=== PATIENT | female | born 2005 | race Caucasian/White ===

== ENCOUNTER 2025-05-12 10:50 | Emergency (ER) | payer BC, SELFPAY ==
--- NOTE | 2025-05-12 10:52 | XRR_ITS ---
PROCEDURE INFORMATION: Exam: XR Chest Exam date and time: 05/12/2025 11:31 AM Age: 19 years old Clinical indication: Pain; Chest pressure; Additional info: Cp TECHNIQUE: Imaging protocol: Radiologic exam of the chest. Views: 1 view. COMPARISON: No relevant prior studies available. FINDINGS: Tubes, catheters and devices: Overlying monitor leads noted. Lungs: Unremarkable. No infiltrate/edema or consolidation. Pleural spaces: Unremarkable. No pleural effusion. No pneumothorax. Heart/Mediastinum: Unremarkable. No cardiomegaly. Bones/joints: Visualized osseous structures show no acute abnormality. XR/XR chest 1V portable [id number] IMPRESSION: No acute cardiopulmonary abnormality.
[2025-05-12 10:54] VITALS: BP 140/98; PULSE 122; RESP 18; TEMP 36.8; O2SAT 97; BMI 32.6
--- NOTE | 2025-05-12 10:54 | ECG_ITS ---
[facility]12 Pat Name: Kiersten Evans Department: Room: Gender: Female Mill [employer]ender: : 2005 Requested By: Laura Peter Order Number: [id number] Snyder MD: Jere Sullivan M.D. Measurements Intervals [place] Rate: 108 P: 51 MT: 163 QRS: 45 QRSD: 80 T: 45 QT: 304 QTc: 409 Interpretive Statements SINUS TACHYCARDIA ABNORMAL RHYTHM ECG No previous ECG available for comparison Electronically Signed On 05-12-2025 20:15:03 CDT by Jere Sullivan M.D. [email or web address]
--- NOTE | 2025-05-12 11:01 | CTR_ITS ---
PROCEDURE INFORMATION: Exam: CT Abdomen And Pelvis With Contrast Exam date and time: 05/12/2025 12:34 PM Age: 19 years old Clinical indication: Abdominal pain; Additional info: Abd pain TECHNIQUE: Imaging protocol: Computed tomography of the abdomen and pelvis with contrast. Radiation optimization: All CT scans at this facility use at least one of these dose optimization techniques: automated exposure control; mA and/or kV adjustment per patient size (includes targeted exams where dose is matched to clinical indication); or iterative reconstruction. Contrast material: OMNI 350; Contrast volume: 100 ml; Contrast route: INTRAVENOUS (IV); COMPARISON: CR (CHEST, ) 05/12/2025 11:31 AM RADIATION DOSE METRICS: Total DLP (mGy-cm): 860.78 FINDINGS: Lungs: Visualized lung bases appear clear. Liver: Normal. No mass. Gallbladder and biliary ducts: Normal. No calcified stones. No ductal dilation. Pancreas: Normal. No ductal dilation. Spleen: Normal. No splenomegaly. Adrenal glands: Normal. No mass. Kidneys and ureters: Well rounded 10 mm hypodense focus is seen upper pole cortex of the right kidney of predominant fluid density with Hounsfield measurements, suggesting small renal cortical cyst. Kidneys appear unremarkable otherwise. No urinary tract stone or obstructive uropathy or perinephric stranding is seen. Stomach and bowel: Unremarkable. No obstruction. No mucosal thickening. Moderate stool volume throughout the colon. Appendix: The appendix is visualized (coronal series 5 images 32 through 34 and axial series 3 images 66 through 69) and appears unremarkable. Intraperitoneal space: No free fluid or ascites. No free air. Vasculature: Unremarkable. No abdominal aortic aneurysm. Lymph nodes: Unremarkable. No enlarged lymph nodes. Urinary bladder: Urinary bladder appears well distended and otherwise unremarkable. Reproductive: Uterus is unremarkable in appearance. Rounded hypodense fluid density cyst is seen involving the left ovary within the left adnexal region measuring 2.7 x 2.2 cm on axial exam and 2.8 x 2.3 cm on coronal exam and 3 x 2.3 cm on sagittal exam. Small follicles noted both ovaries otherwise. Bones/joints: Bone windows show no acute osseous abnormality. Soft tissues: Unremarkable. CT/CT abdomen pelvis w con* [id number] IMPRESSION: 1. 2.5-3 cm left ovarian cyst. 2. Small 10 mm right renal cortical cyst. 3. Moderate stool throughout the colon and correlate clinically for constipation. 4. No acute findings otherwise. COMMENTS: Consistent with the [employer]'s Incidental Findings Committee white paper (J Am David Radiol 2018): Any incidental renal lesion less than 1 cm or classified as too small to characterize, or any incidental cystic renal lesion characterized as simple-appearing, is likely benign. No follow-up imaging is recommended for these lesions per consensus recommendations based on imaging criteria.
--- NOTE | 2025-05-12 11:02 | ED_ITS ---
HPI - Abdominal Pain 2 General: Chief Complaint: Abdominal Pain Stated Complaint: chest/abd pain Time Seen by Provider: 05/12/25 10:52 Source: patient Mode of arrival: ambulatory Limitations: no limitations History of Present Illness: 19-year-old female states she been havin g abdominal pain has been going on for weeks. States the pain is diffuse in nature rates an 8 out of 10 and is sharp and cramping. She denies any vomiting she denies any diarrhea denies any fevers she denies any worse improving factors. Associated Symptoms: Reports nausea; Denies chills, diarrhea, dysuria, fever(s) and vomiting Related Data Home Medications ?Medication ?Instructions ?Recorded ?Confirmed calcium carbonate (Tums) 600 mg PO BID PRN Stomach Up set 05/12/25 05/12/25 ibuprofen 200 mg tablet (Advil) 200 mg PO Q6H PRN Feve r Or Pain 05/12/25 05/12/25 metformin 500 mg tablet 500 mg PO BID 05/12/2505/12 simethicone 80 mg chewable tablet 160 mg PO DAILY PRN 05/12/25 05/12/25 (Gas Relief (simethicone)) Gastrointestinal Spasms Or Cramping Previous Rx's ?Medication ?Instructions ?Recorded dicyclomine 20 mg tablet 20 mg PO TID PRN abdominal p ain 05/12/25 #20 tabs ondansetron 4 mg disintegrating 4 mg PO Q6H PRN nausea and 05/12/25 tablet vomiting #14 tabs Allergies Allergy/AdvReac Type Severity Reaction Status Date / Time No Known Allergies Allergy Verified 05/12/25 10:57 Review of Systems 2 Const: Denies: fever(s), chills, body aches or change in appetite ENMT: Denies: throat pain or dental pain Card: Reports: chest pain Resp: Denies: dyspnea GI: Reports: abdominal pain and nausea; Denies: vomiting or diarrhea : Denies: dysuria Musc: Denies: neck pain or back pain Skin/Breast: Denies: rash Neuro: Denies: headache(s) Physical Exam 2 Const: COMMON NORMALS: no acute distress, patient oriented x3 and healthy appearing HENMT: COMMON NORMALS: normocephalic and atraumatic HEAD & SCALP: n ormocephalic and atraumatic Neck/C-Spine: COMMON NORMALS: full ROM and supple Chest: COMMONS NORMALS: normal inspection of the chest Resp: COMMON NORMALS: normal respiratory effort, No retractions, No use of accessory muscles and clear to auscultation bilaterally AUSCULTATION: clear to auscultation bilaterally Cardio: COMMON NORMALS: regular rhythm and No murmurs present (Cardio) R ATE: tachycardic RHYTHM: regular rhythm GI: COMMON NORMALS: Normal to inspection, nondistended, normoactive bowel sounds present, Soft to palpation, non-tender and no masses PALPATION: Yes Soft to palpation Extremity: COMMON NORMALS: normal to inspection and full ROM Neuro: COMMON NORMALS: patient oriented x3, moves all extremities and no focal motor deficits Psych: COMMON NORMALS: mental status grossly normal, Normal thought process present and cooperative THOUGHT PROCESS: Normal thought process present Skin: COMMON NORMALS: no rashes or lesions noted and no wounds GENERAL SKIN EXAM: no rashes or lesions noted Course 2 Vital Signs: Vital signs: Vital Signs Temperature 98.3 F 05/12/25 10:54 Pulse Rate 100 05/12/25 13:30 Respiratory Rate 18 05/12/25 13:30 Blood Pressure 91/63 05/12/25 13:30 Pulse Oximetry 98 05/12/25 13:30 Oxygen Delivery Me thod Room Air 05/12/25 13:30 MDM - Abdominal Pain Medical Decision Making Patient presents here with abdominal pain CT showed no acute findings she feels much improved here. Blood works normal she is stable for discharge we will place her on Bentyl along with Zofran return if worsening she understands agrees to plan Medical Records I reviewed the patient's medical records. Lab Data I reviewed the patient's lab results. 05/12/25 11:45 05/12/25 11:45 Labs/Radiology: Radiology Impressions Chest X-Ray 05/12/25 10:52 IMPRESSION: No acute cardiopulmonary abnormality. Abdomen/Pelvis CT 05/12/25 11:01 IMPRESSION: 1. 2.5-3 cm left ovarian cyst. 2. Small 10 mm right renal cortical cyst. 3. Moderate stool throughout the colon and correlate clinically for constipation. 4. No acute findings otherwise. COMMENTS: Consistent with the [employer]'s Incidental Findings Committee white paper (J Am David Radiol 2018): Any incidental renal lesion less than 1 cm or classified as too small to characterize, or any incidental cystic renal lesion characterized as simple-appearing, is likely benign. No follow-up imaging is recommended for these lesions per consensus recommendations based on imaging criteria. Laboratory Results WBC 12.13 10^3/uL (3.29-11.43) H 05/12/25 11:45 RBC 4.94 10^6/uL (3.85-5.65) 05/12/25 11:45 Hgb 14.30 g/dL (11.27-16.99) 05/12/25 11:45 Hct 43.6 % (36-47) 05/12/25 11:45 MCV 88.3 fl (85-98) 05/12/25 11:45 MCH 28.9 pg (27-33) 05/12/25 11:45 MCHC 32.8 g/dL (30-55) 05/12/25 11:45 RDW 12.1 % (12.1-15.1) 05/12/25 11:45 Plt Count 256 10^3/cmm (157-399) 05/12/25 11:45 MPV 11.3 fL (7.4-10.4) H 05/12/25 11:45 Neut % (Auto) 67.9 % 05/12/25 11:45 Lymph % (Auto) 19.8 % 05/12/25 11:45 [place] % (Auto) 6.3 % 05/12/25 11:45 Eos % (Auto) 5.1 % 05/12/25 11:45 Baso % (Auto) 0.7 % 05/12/25 11:45 Neut # (Auto) 8.23 10^3/uL (1.8-7.7) H 05/12/25 11:45 Lymph # (Auto) 2.4 10^3/uL (0.8-4.8) 05/12/25 11:45 Gibson # (Auto) 0.8 10^3/uL (0.2-0.9) 05/12/25 11:45 Eos # (Auto) 0.6 10^3/uL (0.0-0.8) 05/12/25 11:45 Baso # (Auto) 0.1 10^3/uL (0.0-0.1) 05/12/25 11:45 Nucleated RBC % (auto) 0 % 05/12/25 11:45 Nucleated RBCs # 0.0 /100WBC 05/12/25 11:45 Sodium 138 mmol/L (136-145) 05/12/25 11:45 Potassium 4.3 mmol/L (3.5-5.1) 05/12/25 11:45 Chloride 100 mmol/L (98-107) 05/12/25 11:45 Carbon Dioxide 28 mmol/L (22-29) 05/12/25 11:45 Anion Gap 14.3 (5-19) 05/12/25 11:45 BUN 11 mg/dL (6-20) 05/12/25 11:45 Creatinine 0.8 mg/dL (0.5-0.9) 05/12/25 11:45 GFR Calculation 90.5 mL/min (90-130) 05/12/25 11:45 Glucose 89 mg/dL (65-115) 05/12/25 11:45 Calculated Osmolality 285 mOsm/kg (285-295) 05/12/25 11:45 Calcium 10.2 mg/dL (8.5-10.5) 05/12/25 11:45 Total Bilirubin 0.6 mg/dL (0.15-1.2) 05/12/25 11:45 AST 32 U/L (0-32) 05/12/25 11:45 ALT 25 U/L (0-33) 05/12/25 11:45 Alkaline Phosphatase 90 U/L (35-105) 05/12/25 11:45 Total Protein 7.5 g/dL (6.6-8.7) 05/12/25 11:45 Albumin 4.6 g/dL (3.5-5.2) 05/12/25 11:45 Globulin 2.9 g/dL (1.3-4.6) 05/12/25 11:45 Lipase 35 U/L (13-60) 05/12/25 11:45 HCG, Qual Negative (Negative) 05/12/25 11:45 Urine Color Yellow (Yellow) 05/12/25 11:27 Urine Appearance Cloudy (CLEAR) A 05/12/25 11:27 Urine pH 8.0 (5-7) A 05/12/25 11:27 Ur Specific [place] 1.015 (1.005-1.030) 05/12/25 11:27 Urine Protein Negative (Negative) 05/12/25 11:27 Urine Glucose (UA) Negative (Normal) 05/12/25 11:27 Urine Ketones Negative (Negative) 05/12/25 11:27 Urine Blood 2+ (Negative) A 05/12/25 11:27 Urine Nitrate Negative (Negative) 05/12/25 11:27 Urine Bilirubin Negative (Negative) 05/12/25 11:27 Urine Urobilinogen 0.2 mg/dL (Negative) 05/12/25 11:27 Ur Leukocyte Esterase 2+ (Negative) A 05/12/25 11:27 Urine RBC 0-4 /hpf (0-2) H 05/12/25 11:27 Urine WBC 10-15 /hpf (0-5) H 05/12/25 11:27 Ur Squamous Epith Cells 10-15 /hpf (0-5) H 05/12/25 11:27 Amorphous Sediment Not Reportable 05/12/25 11:27 Urine Bacteria 1+ /hpf (NONE) H 05/12/25 11:27 All radiology interpretation(s) finalized by discharge EKG Data EKG 1: I personally reviewed and interpreted this EKG as follows: EKG interpretation date: 05/12/25 EKG interpretation time: 10:54 Interpretation: sinus tach hr [address] elevation qrs 80 qtc 368 Discharge Plan Discharge Patient Disposition: Home Clinical Impression: Abdominal pain Condition: Stable Prescriptions: New dicyclomine 20 mg tablet 20 mg PO TID PRN (Reason: abdominal pain) Qty: 20 0RF ondansetron 4 mg tablet,disintegrating 4 mg PO Q6H PRN (Reason: nausea and vomiting) Qty: 14 0RF No Action metformin 500 mg tablet 500 mg PO BID Tums 300 mg (750 mg) Tablet,Chewable 600 mg PO BID PRN (Reason: Stomach Upset) ibuprofen [Advil] 200 mg Tablet 200 mg PO Q6H PRN (Reason: Fever Or Pain) simethicone [Gas Relief (simethicone)] 80 mg Tablet,Chewable 160 mg PO DAILY PRN (Reason: Gastrointestinal Spasms Or Cramping) Discharge Orders: Discharge ED (Routine); Ordered 05/12/25 Ordered By: Laura Peter Discharge Diet: Advance as tolerated Discharge Activity: Resume usual activity Patient Instructions: Abdominal Pain (ED) Print Language: [place] Coding Level of Care Code ED Edging Machine Setter for Terell Murray
[2025-05-12 11:22] VITALS: BP 140/98; PULSE 90; RESP 18; O2SAT 95
[2025-05-12 11:34] LABS: Glucose Urine UA Negative (Normal); Nitrate Urine Negative (Negative); Specific Gravity, Urine 1.015 (1.005-1.030)
[2025-05-12 11:37] LABS: Add Urine Microscopic? YES; Universal Test for UA Present (0)
[2025-05-12 11:38] VITALS: BP 140/98; PULSE 85; RESP 18; O2SAT 95
[2025-05-12 11:50] LABS: UA Manual Slide Review YES
[2025-05-12 11:54] LABS: Hematocrit 43.6 % (36-47); Hemoglobin 14.30 g/dL (11.27-16.99); Mean Corpuscular HGB Conc 32.8 g/dL (30-55); Mean Corpuscular Hemoglobin 28.9 pg (27-33); Mean Corpuscular Volume 88.3 fl (85-98); Nucleated Red Blood Cells % 0 %; Platelet Count 256 10^3/cmm (157-399); Red Blood Count 4.94 10^6/uL (3.85-5.65); White Blood Count 12.13 10^3/uL (3.29-11.43)
[2025-05-12 11:57] VITALS: RESP 18
[2025-05-12] MEDS: morphine 4 mg/mL SDV 1 mL IVP (11:57)
[2025-05-12] MEDS: ondansetron 2 mg/ML SDV 2 mL 4 MG IVP (11:58)
[2025-05-12 12:11] LABS: Alanine Aminotransferase 25 U/L (0-33); Albumin Level 4.6 g/dL (3.5-5.2); Alkaline Phosphatase 90 U/L (35-105); Blood Urea Nitrogen 11 mg/dL (6-20); Calcium 10.2 mg/dL (8.5-10.5); Carbon Dioxide 28 mmol/L (22-29); Chloride 100 mmol/L (98-107); Creatinine Clr Calc Pharmacy 126.9692; Globulin 2.9 g/dL (1.3-4.6); Glucose 89 mg/dL (65-115); Lipase 35 U/L (13-60); Osmolality Calculated 285 mOsm/kg (285-295); Sodium 138 mmol/L (136-145); Total Protein 7.5 g/dL (6.6-8.7)
[2025-05-12 12:25] LABS: HCG, Serum Qual Negative (Negative)
[2025-05-12 12:28] LABS: Anion Gap 14.3 (5-19); Aspartate Amino Transferase 32 U/L (0-32); Potassium 4.3 mmol/L (3.5-5.1)
[2025-05-12] MEDS: iohexol 350 mg/mL 500 mL Btl (per mL) IV (12:37)
[2025-05-12 13:30] VITALS: BP 91/63; PULSE 100; RESP 18; O2SAT 98
--- NOTE | 2025-05-12 13:30 | PC.PHAR ---
Patient states she takes Metformin , but she doesn't take it regularly. she doesn't have a refill , but she took one today . I hshow last fill was 09/21/24 30days #60. Patient states she need to see the doctor it has been a while.
[2025-05-12 13:50] VITALS: BP 119/84; PULSE 77; RESP 17; O2SAT 98
== END 2025-05-12 13:51 | disposition home or self-care (01) ==
PROVIDERS: Emergency Provider Emergency Medicine
DX: R10.9 Unspecified abdominal pain (principal)
CPT/HCPCS: 36415; 71045; 74177; 80053; 81001; 83690; 84703; 85025; 93005; 96374; 96375; 99285; J2270; J2405